=== PATIENT | male | born 2000 ===

== ENCOUNTER 2024-03-21 05:27 | Outpatient (CLI) | payer SELFPAY ==
--- NOTE | 2024-03-21 12:12 | W.NUTRFU ---
Date of service: 03/21/24 Time of Service: 11:00 Nutrition Note NOTE: Siva comes in today for nutrition referral regarding: wt mgt 28yo male with anthropometrics on referral from 02/21/24: 147.9kg, 70 BMI 46.86 Problem list includes ANGEL (pt states sleep clinic appt Jun 09), Anxiety, depression, epilepsy (last seizure at 9yo). autism spec disorder, GERD. Estimated energy needs: 3198kcals (REEx1.3) with recommendation of 2600kcals for wt loss. 130-195g protein (20-30%of recommended kcals) and 3198mL fluid (1mL/required kcal) Siva lives with his aunt after moving up from [place]. They share shopping duties and they eat independently of each other most meals - sometimes will eat dinner together and they do go out to eat most weekends as well. He denies taking any vitamin supplements at this time. He takes omeprazole and reports taking resperidone, which he sites as a major influencer of his weight. He has tied keto, calories in-calories out, and low carb diets. States he was down to 189lbs ~2years ago when finished with keto but could not sustain this diet and craved carbs. Pt self reports to be a pretty picky eater (2 on a scale from 1-10). He drinks sparkling water or milk with meals and some water between meals but confirms darker urine most days and definitely short of 3L per day. Interviewed pt for usual day of eating and his current usual diet is assessed to be low in fiber, low in protein, low in essential oils like n-3's, and high in refined starch choices - He might just have a starch at dinner time like rice pilaf with no other accompaniments. Pt reports exercising - swims for ~40 minutes 3-4 times per week. walks perimeter of grocery store and states he often ogden 200-300kcals per his apple watch. Nutrition diagnosis: Inappropriate intake of types of carbohydrates (NI-53.3) related to low fiber intake and high intake of refined/low-fiber starch choices, as evidenced by pt. diet history Inadequate mineral intake (NI-55.1) of magnesium, potassium, selenium, zinc, related to refined food choices and low produce intake and low whole grain intake, as evidenced by pt. diet history of usual diet. Intervention: Encouraged pt to take multivtamin/mineral supplement and 2,000IU vitamin D3 for nutrition support and make up for some nutrient deficits. Encouraged to aim for increased intensity of exercise as he adapts and to prioritize strength training as well (suggested starting with PT bands and graduating to other exercises) Encouraged to manage stress and work with good sleep habits and follow through with sleep clinic recommendations as stress and sleep issues contribute to trouble with wt mgt. Asked pt to prioritize keeping added sugar intake <40g per day, fiber intake increased gradually with goal of consistently getting 30g per day, and making sure to get at least 100g protein per day and more from plant sources like beans, nuts/seeds, intact grains. Cautioned on going out on weekends regularly to eat out due to these choices most likely higher in kcals, fat, sodium and refined carbs as their usual choices seem to be [place]ana, pizza, etc... Pt took my contact info to call/email with any needs for follow up or just some comments back and forth via emal or phone call. Time Spent in Nutritional Counseling and Treatment: 45 minutes
== END 2024-03-21 05:28 | disposition home or self-care (01) ==
LOC: DS 05:27
PROVIDERS: Visit Provider Dietitian, Registered
DX: E66.8 Other obesity (principal); Z68.42 Body mass index [BMI] 45.0-49.9, adult; Z72.4 Inappropriate diet and eating habits; Z71.3 Dietary counseling and surveillance
CPT/HCPCS: 00123; 97802